=== PATIENT | male | born 1940 | race Caucasian/White ===

== ENCOUNTER 2017-06-08 09:38 | Inpatient (IN) | payer OTHER ==
[~2017-06-08] VITALS: Ht 172.7 cm; Wt 69.4 kg
[2017-06-08] MEDS ORDERED: ALFUZOSIN HYDRO10 M1 PO (10:05)
[2017-06-08] MEDS ORDERED: ASPIR 8181 MG PO (10:06)
[2017-06-08] MEDS ORDERED: BUSPIRONE HCL5 MG PO (10:06)
[2017-06-08] MEDS ORDERED: COLACE100 MG PO (10:06)
[2017-06-08] MEDS ORDERED: ZOCOR40 MG PO (10:07)
[2017-06-08] MEDS ORDERED: VENLAFAXINE H37.5 MG PO (10:07)
[2017-06-08] MEDS ORDERED: REM15 PO (10:07)
[2017-06-08] MEDS ORDERED: D3-50001 TAB PO (10:08)
[2017-06-08] MEDS ORDERED: APAP500 MG PO (10:09)
[2017-06-08] MEDS ORDERED: IMO2 PO (10:10)
[2017-06-08 10:48] LABS: BASOPHIL % 0.8 % (0-2); PLATELET COUNT 246 x10^3mcL (130-400)
[2017-06-08 11:12] LABS: CALCIUM 8.6 mg/dL (8.5-10.1); CARBON DIOXIDE 24.2 mmol/L (21-32); CHLORIDE SERUM 101 mmol/L (98-107); CREATININE SERUM 1.5 mg/dL (0.7-1.3); GLUCOSE SERUM 94 mg/dL (74-106); POTASSIUM SERUM 4.3 mmol/L (3.5-5.1); SODIUM SERUM 135 mmol/L (136-145)
[2017-06-08 11:16] LABS: ALKALINE PHOSPHATASE 51 U/L (46-116); ALT/SGPT 19 U/L (16-63); AST/SGOT 20 U/L (15-37); BILIRUBIN TOTAL 0.44 mg/dL (0.20-1.00); HDL CHOLESTEROL 38 mg/dL (40-60); MAGNESIUM 1.6 mg/dL (1.8-2.4); TOTAL PROTEIN, SERUM 6.8 g/dL (6.4-8.2)
[2017-06-08 11:17] LABS: ALBUMIN 3.2 g/dL (3.4-5.0); CHOLESTEROL 121 mg/dL (<200)
[2017-06-08 13:12] LABS: PHOSPHOROUS 2.9 mg/dL (2.5-4.9)
[2017-06-08 13:20] LABS: CHOLESTEROL/HDL RATIO 3.4
[2017-06-08 13:53] VITALS: BP 145/76
[2017-06-08 14:03] VITALS: Ht 172.7 cm; Wt 69.4 kg
[2017-06-08 14:13] LABS: UA SPECIFIC GRAVITY >=1.030 (1.005-1.035); microscopic required? YES; urine erythrocyte NEGATIVE (NEGATIVE)
[2017-06-08 18:05] VITALS: BP 124/70
[2017-06-08 20:51] VITALS: BP 134/74
[2017-06-09 05:23] VITALS: BP 137/73
[2017-06-09 09:53] VITALS: BP 138/72
[2017-06-09 14:07] VITALS: BP 132/77
[2017-06-09 17:18] VITALS: BP 121/73
[2017-06-09 21:37] VITALS: BP 132/77
[2017-06-10 05:34] VITALS: BP 129/74
[2017-06-10 06:38] LABS: BASOPHIL % 0.6 % (0-2); PLATELET COUNT 229 x10^3mcL (130-400); RED CELL DISTRIBUTION WIDTH 13.8 % (11.5-14.5)
[2017-06-10 07:06] LABS: CALCIUM 8.5 mg/dL (8.5-10.1); CARBON DIOXIDE 24.1 mmol/L (21-32); CHLORIDE SERUM 103 mmol/L (98-107); GLUCOSE SERUM 78 mg/dL (74-106); POTASSIUM SERUM 3.8 mmol/L (3.5-5.1); SODIUM SERUM 138 mmol/L (136-145)
[2017-06-10 09:25] VITALS: BP 127/76
[2017-06-10 12:53] VITALS: BP 139/83
[2017-06-10 13:01] VITALS: BP 139/83
== END 2017-06-10 14:57 | DRG 640 ==
LOC: ED 09:38 → DU 12:19 → MU 06-10 14:36
PROVIDERS: Emergency Medicine; ADMIT Student in an Organized Health Care Education/Training Program
DX: E86.0 Dehydration (principal); N17.0 Acute kidney failure with tubular necrosis; E44.0 Moderate protein-calorie malnutrition; E83.42 Hypomagnesemia; I10 Essential (primary) hypertension; D64.9 Anemia, unspecified; F41.8 Other specified anxiety disorders; I27.20 Pulmonary hypertension, unspecified; F03.90 Unspecified dementia, unspecified severity, without behavioral disturbance, psychotic disturbance, mood disturbance, and anxiety; I35.1 Nonrheumatic aortic (valve) insufficiency; I34.0 Nonrheumatic mitral (valve) insufficiency; I36.1 Nonrheumatic tricuspid (valve) insufficiency; Z79.82 Long term (current) use of aspirin; E78.5 Hyperlipidemia, unspecified
CPT/HCPCS: 83880; J3475; J7030; Q0092